=== PATIENT | female | born 2000 | race Caucasian/White ===

== ENCOUNTER → 2023-10-10 08:43 | Outpatient (CLI) | payer OTHER, MEDICAID, SELFPAY ==
[2023-10-10 09:50] LABS: Influenza A - CEPHEID Flu A NEGATIVE (NEGATIVE); Influenza B - CEPHEID Flu B NEGATIVE (NEGATIVE); Respiratory Syncytial Virus POSITIVE (Negative)
[2023-10-10 10:01] LABS: COVID-19 CEPHEID 4-PLEX PCR Negative (Negative)
== END ==
PROVIDERS: Visit Provider Nurse Practitioner Family
DX: J02.9 Acute pharyngitis, unspecified (principal); R50.9 Fever, unspecified
CPT/HCPCS: 0241U; 87070; 87077; 87880